=== PATIENT | male | born 1995 | race Caucasian/White ===

== ENCOUNTER 2017-10-24 20:36 | Outpatient (CLI) ==
[2016-02-15 18:17] VITALS: BMI 40.1
== END 2017-10-24 20:52 | disposition short-term general hospital (02) ==
LOC: AMBL 20:36
PROVIDERS: ATTEND Internal Medicine Geriatric Medicine
DX: R07.9 Chest pain, unspecified (principal); R55 Syncope and collapse

== ENCOUNTER 2017-12-30 22:36 | Emergency (ER) | payer OTHER ==
[2017-12-30 22:43] VITALS: TEMP 98.7; BMI 43.2
--- NOTE | 2017-12-30 22:55 | ED.PDOC ---
General ED Provider: Dr. BLAINE MARQUEZ Chief Complaint: Ankle Pain/Injury Stated Complaint: My left ankle hurts. I fell 1 week ago. Time Seen by Physician: 22:55 Mode of Arrival: Walk-In Information Source: Patient Primary Care Provider: JEFFERY UGARTE Nursing and Triage Documentation Reviewed and Agree: Yes Does patient meet sepsis criteria?: No System Inflammatory Response Syndrome: Not Applicable Sepsis Protocol: For patient's 13 years and over: Temp is 96.8 and below OR 101 and greater Pulse >90 BPM Resp >20/minute Acutely Altered Mental Status Are patient's symptoms suggestive of a new infection, such as: -Pneumonia -Skin, Soft Tissue -Endocarditis -UTI -Bone, Joint Infection -Implantable Device -Acute Abdominal Infection -Wound Infection -Meningitis -Blood Stream Catheter Infection -Unknown Musculoskeletal Complaint Exam - Ankle/Foot Complaint/Exam Location of Injury: Reports: Left, Leg, Ankle Mechanism of Injury: Reports: Trauma Onset/Duration: 1 week ago Symptoms Are: Reports: Still present Onset of Pain: Reports: Immediate Initial Severity: Severe Current Severity: Moderate Character: Reports: Aching Alleviating: Reports: Rest Aggravating: Reports: Movement, Weight bearing Able to Bear Weight: Yes Associated Signs and Symptoms: Denies: Swelling, Redness, Bruising, Fever, Weakness, Numbness, Tingling Related History: Denies: Similar episode, Occupational injury Gout Risk Factors: Reports: None Lower Extremity Findings: Present: Tenderness, Limited range of motion. Absent : Swelling, Ecchymosis, Abnormal contour, Rotation, Ligamentous instability, Laceration, Erythema, Warmth, Blisters, Other joint pain, Foreign body Achilles Tendon Abnormality: No Tenderness: Present: Lateral malleolus Limited Range of Motion: Present: Inversion Differential Diagnosis: Closed Fracture, Sprain, Strain Review of Systems - Review Of Systems Constitutional: Reports: No symptoms Eyes: Reports: No symptoms Ears, Nose, Mouth, Throat: Reports: No symptoms Respiratory: Reports: No symptoms Cardiac: Reports: No symptoms GI: Reports: No symptoms : Reports: No symptoms Musculoskeletal: Reports: Joint pain, Joint swelling Skin: Reports: No symptoms Neurological: Reports: Anxiety Endocrine: Reports: No symptoms Hematologic/Lymphatic: Reports: No symptoms All Other Systems: Reviewed and Negative Past Medical History - Past Medical History Endocrine: Reports: None Cardiovascular: Reports: Hypertension Respiratory: Reports: Asthma Hematological: Reports: None Gastrointestinal: Reports: None Genitourinary: Reports: None Neuro/Psych: Reports: Migraine Musculoskeletal: Reports: None Cancer: Reports: None - Surgical History General Surgical History: Reports: Tonsillectomy, Other (ear tubes) - Family History Family History: Reports: Unknown - Social History Smoking Status: Never smoker, Dips snuff Hx Substance Use: No Alcohol Screening: None - Immunizations Tetanus Shot up to Date: Yes Physical Exam - Physical Exam Appearance: Well-appearing, Obese Pain Distress: Moderate Cardiovascular: RRR, Pulses normal, No rub, No murmur GI/: Soft, Nontender, No masses, Bowel sounds normal, No Organomegaly Musculoskeletal: Normal strength, No edema, No calf tenderness, Limited ROM ( Left ankle ) Neurological: Alert, Oriented Psychiatric: Anxious Critical Care Note - Critical Care Note Total Time (mins): 0 Course - Course Vital Signs: Temp Pulse Resp BP Pulse Ox 12/30/17 22:36 98.7 F 70 20 141/107 H 98 Departure - Departure Time of Disposition: 23:08 Disposition: HOME SELF-CARE Discharge Problem: Ankle sprain Qualifiers: Encounter type: initial encounter Involved ligament of ankle: unspecified ligament Laterality: left Qualified Code(s): S93.402A - Sprain of unspecified ligament of left ankle, initial encounter Instructions: Ankle Sprain (ED) Condition: Stable Pt referred to PMD for follow-up: Yes IPMP verified?: No Additional Instructions: Take Medications as prescribed Follow UP with PCP in 3 days Prescriptions: Ibuprofen [Motrin] 600 mg PO Q6H PRN #30 tablet PRN Reason: Analgesia Allergies/Adverse Reactions: Allergies No Known Drug Allergies Adverse Reaction (Verified 12/30/17 22:43) Home Medications: Ambulatory Orders Albuterol Sulfate [Proair Hfa] 2 inh INH Q4H PRN 01/30/14 Nebivolol HCl [Bystolic] 5 mg PO DAILY 02/15/16 Ibuprofen [Motrin] 600 mg PO Q6H PRN #30 tablet 12/30/17
[2017-12-30] MEDS ORDERED: MOTRIN PO STA (23:00)
[2017-12-30 23:34] VITALS: BP 134/75
--- NOTE | 2017-12-31 06:06 | DI ---
Exam: Two views of the left tibia and fibula. Comparison: Trauma with ankle pain. FINDINGS: Linear lucency seen in the region of the distal left tibia on the lateral view. Otherwise , no acute fracture or malalignment is seen. Foreign body. Impression: Partially evaluated linear lucency in the tibia may be summation artifact but may also have. Recomme nd x-rays of the ankle for further characterization
--- NOTE | 2017-12-31 06:08 | DI ---
Exam: Three views of the left ankle. Comparison: None available. Reason for exam: Trauma. FINDINGS: The talar dome is intact. No obvious fracture or malalignment is seen. There is a small, well marginated cortical irregularity in the region of the lateral clear space. No abnormal widenin g of the medial or lateral clear space. Impression: 1. No obvious fracture or dislocation left ankle. 2. Well marginated osseous fragment is seen in the region of the lateral clear space which may repre sent a loose body or degenerative disease . Recommend correlation with the site of patient's pain an d consider further evaluation.
== END 2017-12-30 23:34 | disposition home or self-care (01) ==
LOC: ED 22:36
DX: S93.402A Sprain of unspecified ligament of left ankle, initial encounter (principal); W19.XXXA Unspecified fall, initial encounter; Z72.0 Tobacco use
CPT/HCPCS: 99283